=== PATIENT | male | born 2000 | race Caucasian/White ===

== ENCOUNTER 2022-02-27 18:03 | Emergency (ER) | payer OTHER ==
[~2022-02-27] VITALS: Ht 172.7 cm; Wt 70.8 kg
[2022-02-27 18:18] VITALS: BP 136/88
--- NOTE | 2022-02-27 18:51 | NUR ---
21 Y/O MALE C/O GENERALIZED HEADACHE X3 DAYS. PT REPORTS INTERMITTENT ABDOMINAL PAIN. PT REPORTS NAUSEA AFTER EATING WITH LOSS OF APPETITE. DENIES VOMITING AND DIARRHEA. PT REPORTS FEVER AT HOME X2 DAYS AGO BUT NO FEVER NOW. PT REPORTS TAKING AT HOME COVID TEST WITH NEGATIVE RESULT. DENIES ANYONE SICK AT HOME. PT REPORTS TAKING ASPIRIN WITH MINIMAL RELIEF. ABD IS FLAT. SOFT, AND NONTENDER. PT REPORTS DOBBS IS PRESSURE LIKE AND WORSE WITH MOVING HIS HEAD. PT A/O X4 WITH EVEN AND UNLABORED RESPIRATIONS. PMH:DENIES NKDA
--- NOTE | 2022-02-27 19:06 | NUR ---
PT HANDED URINE CUP, STATES HES NOT ABLE TO PROVIDE SAMPLE AT THIS TIME
[2022-02-27 19:23] LABS: BASOPHILS % (AUTO) 0.2 % (0.0-2.0); EOSINOPHILS % (AUTO) 0.1 % (0.0-4.0); HEMATOCRIT 44.1 % (36-52); HEMOGLOBIN 14.6 g/dL (12.0-18.0); LYMPHOCYTES # (AUTO) 1.4 K/uL (2.0-11.5); LYMPHOCYTES % (AUTO) 20.5 % (20.5-51.1); MEAN CORPUSCULAR HEMOGLOBIN 27 pg (27-31); MEAN CORPUSCULAR HGB CONC 33 g/dL (33-37); MEAN CORPUSCULAR VOLUME 80.5 fL (80-94); MONOCYTES # (AUTO) 1.5 K/uL (0.8-1.0); MONOCYTES % (AUTO) 21.2 % (1.7-9.3); PLATELET COUNT (AUTO) 198 K/uL (140-450); RED BLOOD CELL COUNT(AUTO) 5.48 MIL/uL (4.20-6.10); RED CELL DISTRIBUTION WIDTH 14.4 % (11.6-13.7); WHITE BLOOD COUNT (AUTO) 6.9 K/uL (4.8-10.8)
--- NOTE | 2022-02-27 19:27 | NUR ---
REPORT GIVEN TO RAYMUNDO SOLIS, TRANSFER OF CARE AT THIS TIME
[2022-02-27] MEDS: NACL 0.9% 1,000 ML IV ONE (19:46)
[2022-02-27 19:58] LABS: ALBUMIN 3.8 g/dL (3.4-5.0); ANION GAP 10.1 (8-16); CARBON DIOXIDE 27.6 mmol/L (21-32); POTASSIUM 3.7 mmol/L (3.5-5.1); TOTAL BILIRUBIN 0.3 mg/dL (0.0-1.0)
[2022-02-27] MEDS ORDERED: KETOROLAC 30 MG/ML VIAL ONE (20:19)
[2022-02-27] MEDS ORDERED: ONDANSETRON 4 MG/2 ML VIAL ONE (20:19)
[2022-02-27] MEDS ORDERED: KETOROLAC 15 MG/ML VIAL ONE (20:20)
[2022-02-27] MEDS ORDERED: diphenhydrAMINE 50 MG/ML VIAL ONE (20:22)
[2022-02-27] MEDS: diphenhydrAMINE 50 MG/ML VIAL IVP ONE (20:40)
[2022-02-27] MEDS: ONDANSETRON 4 MG/2 ML VIAL IVP ONE (20:42)
[2022-02-27] MEDS: KETOROLAC 15 MG/ML VIAL IVP ONE (20:43)
[2022-02-27] MEDS ORDERED: IBUP-2213 PO (20:50)
[2022-02-27] MEDS ORDERED: ACET-10509 PO (20:50)
--- NOTE | 2022-02-27 21:41 | NUR ---
Patient discharged with v/s stable. Written and verbal after care instructions given and explained. Patient alert, oriented and verbalized understanding of instructions. Ambulatory with steady gait. All questions addressed prior to discharge. ID band removed. Patient advised to follow up with PMD. Rx of ibruprofen/ tyelenol given. Opportunity to ask questions provided and answered.
[2022-02-27 21:42] VITALS: BP 130/80
--- NOTE | 2022-02-27 21:42 | NUR ---
Chart checked and completed.
== END 2022-02-27 21:42 | disposition home or self-care (01) ==
LOC: MED 18:03
DX: B34.9 Viral infection, unspecified (principal); R10.9 Unspecified abdominal pain; Z79.899 Other long term (current) drug therapy
CPT/HCPCS: 36415; 80053; 83690; 85025; 96361; 96374; 96375; 99284; J1200; J1885; J2405; J7030